=== PATIENT | female | born 1990 | race Caucasian/White ===

== ENCOUNTER 2016-11-11 20:08 | Emergency (ER) | payer OTHER ==
[~2016-11-11] VITALS: Ht 162.6 cm; Wt 65.4 kg
[2016-11-11 20:58] LABS: HEMOGLOBIN 13.3 g/dL (11.7-16.4)
[2016-11-11 21:17] LABS: BLOOD UREA NITROGEN 5 mg/dL (7-18)
[2016-11-11 21:35] VITALS: BP 103/66
== END 2016-11-11 22:15 | disposition home or self-care (01) ==
LOC: ED 20:42
DX: O20.0 Threatened abortion (principal); Z3A.09 9 weeks gestation of pregnancy
CPT/HCPCS: 36415; 76801; 80048; 82040; 84702; 85025; 86901; 99285

== ENCOUNTER 2016-11-14 12:26 | Emergency (ER) | payer OTHER ==
[~2016-11-14] VITALS: Ht 162.6 cm; Wt 64.0 kg
[2016-11-14 12:40] VITALS: BP 147/75
== END 2016-11-14 13:36 | disposition left against medical advice (07) ==
LOC: ED 13:30
DX: R68.89 Other general symptoms and signs (principal); Z53.21 Procedure and treatment not carried out due to patient leaving prior to being seen by health care provider

== ENCOUNTER 2016-12-02 08:10 | Emergency (ER) | payer MEDICAID, OTHER ==
[~2016-12-02] VITALS: Ht 162.6 cm; Wt 62.4 kg
[2016-12-02 08:14] VITALS: BP 113/58
[2016-12-02] MEDS ORDERED: SODIUM CHLORIDE FLUSH 10ML SYR IVF ONE (08:30)
[2016-12-02] MEDS ORDERED: ONDANSETRON 2MG/ML, 2ML IVPush ONE (08:30)
[2016-12-02] MEDS ORDERED: SODIUM CHLORIDE 0.9% 1,000ML IVBOLUS ONE (08:30)
[2016-12-02] MEDS ORDERED: ONDANSETRON 2MG/ML, 2ML ONE (08:45)
[2016-12-02 09:14] LABS: BLOOD UREA NITROGEN 11 mg/dL (7-18)
[2016-12-02 09:25] LABS: ASPARTATE AMINO TRANSFERASE 18 U/L (15-37)
== END 2016-12-02 11:27 | disposition home or self-care (01) ==
LOC: ED 09:25
DX: O21.1 Hyperemesis gravidarum with metabolic disturbance (principal); Z3A.21 21 weeks gestation of pregnancy
CPT/HCPCS: 36415; 80053; 81001; 84702; 85025; 87086; 96361; 96374; 99285; J2405; J7030

== ENCOUNTER 2017-03-17 14:22 | Observation (INO) | payer MEDICAID ==
[~2017-03-17] VITALS: Ht 162.6 cm; Wt 67.3 kg
[2017-03-17 14:34] VITALS: BP 112/60
[2017-03-17] MEDS ORDERED: PREN1TAB60 PO (14:34)
== END 2017-03-17 17:30 | disposition home or self-care (01) ==
LOC: LDOP 14:22 → LDIP 15:34
PROVIDERS: ADMIT Obstetrics & Gynecology Female Pelvic Medicine and Reconstructive Surgery; ATTEND Obstetrics & Gynecology Female Pelvic Medicine and Reconstructive Surgery
DX: O26.892 Other specified pregnancy related conditions, second trimester (principal); R10.9 Unspecified abdominal pain; Z3A.26 26 weeks gestation of pregnancy; Y04.0XXA Assault by unarmed brawl or fight, initial encounter; Y93.89 Activity, other specified; Y92.89 Other specified places as the place of occurrence of the external cause; Y99.8 Other external cause status
CPT/HCPCS: 36415; 59025; 81001; 82731; 85460; G0378

== ENCOUNTER 2020-07-06 12:07 | Emergency (ER) | payer SELFPAY ==
[~2020-07-06 12:07] MED LIST: PREN1TAB60 PO
== END 2020-07-06 12:43 | disposition left against medical advice (07) ==
LOC: ED 12:15
DX: R09.89 Other specified symptoms and signs involving the circulatory and respiratory systems (principal); Z53.21 Procedure and treatment not carried out due to patient leaving prior to being seen by health care provider